=== PATIENT | female | born 1975 | race Caucasian/White ===

== ENCOUNTER 2023-11-22 19:00 | Emergency (ER) | payer OTHER, SELFPAY ==
[2023-11-22 19:01] VITALS: BP 198/95; PULSE 80; RESP 16; TEMP 36.2; O2SAT 100; BMI 34.8
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
[2023-11-22] MEDS: Acetaminophen 500 MG Tablet 1000 MG PO (19:38)
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
== END 2023-11-22 20:39 | disposition home or self-care (01) ==
PROVIDERS: Emergency Provider Emergency Medicine; PCP Family Medicine; Visit Provider Emergency Medicine
DX: S39.012A Strain of muscle, fascia and tendon of lower back, initial encounter (principal); S29.019A Strain of muscle and tendon of unspecified wall of thorax, initial encounter; E66.9 Obesity, unspecified; V43.62XA Car passenger injured in collision with other type car in traffic accident, initial encounter
CPT/HCPCS: 72070; 72100; 99283